=== PATIENT | female | born 1950 | race Caucasian/White ===

== ENCOUNTER → 2017-10-30 | Outpatient (CLI) | payer MEDICARE, OTHER ==
[~2017-10-30] MED LIST: ALBIPROI INH; ALPR.25; ASPI325EC PO; CLOP75 PO; DOCU100 PO; DULO60 PO; ERGO50000 PO; FURO20 PO; GABA100 PO; HYDACE5; HYDACE5 PO; HYDMOR2 PO; NITR.2TP TOP; Norco 10-325 T1 EACH PO; OMEP20ER PO; RISE35; RISP.5 PO; SOMA350 MG PO; VENL150ER; WARF2; WARF2.5; ZOLP10; ZOLP10 PO; ZOLP12.5; ZOLP5
== END ==
LOC: LAB SHORT 14:27
DX: N39.0 Urinary tract infection, site not specified (principal)
CPT/HCPCS: 87077; 87086; 87186

== ENCOUNTER → 2018-01-03 | Outpatient (CLI) | payer MEDICARE, OTHER ==
[2018-01-03 11:36] LABS: Source, Urine Clean Catch
[2018-01-03 13:18] LABS: Bilirubin, Urine Neg (Neg); Blood, Urine 2+ (Neg); Glucose Qualitative, Urine Neg (Neg); Ketones, Urine Neg (Neg); Leukocyte Esterase, Urine Neg (Neg); Nitrite, Urine Neg (Neg); Protein, Urine Neg (Neg); Specific Gravity, Urine 1.005 (1.003-1.022); Urobilinogen, Urine NORM (Normal); pH, Urine 6.5 (5.0-8.0)
[2018-01-03 13:38] LABS: Appearance, Urine Clear (Clear); Color, Urine Yellow (P-Yellow)
[2018-01-03 13:39] LABS: Bacteria Not Seen /hpf; Red Blood Cells, Urine 0-2 /hpf (0-2); Squamous Epithelial Cells Few /hpf (Few); White Blood Cells, Urine Not Seen /hpf (0-5)
== END | disposition home or self-care (01) ==
LOC: LAB 11:13
PROVIDERS: Nurse Practitioner Obstetrics & Gynecology
DX: R31.0 Gross hematuria (principal)
CPT/HCPCS: 81001

== ENCOUNTER → 2018-03-03 | Outpatient (CLI) | payer MEDICARE, OTHER | END | disposition home or self-care (01) | LOC: PLD 11:10 → LAB SHORT 11:10 | DX: L82.1 Other seborrheic keratosis (principal) | CPT/HCPCS: 88305 ==